=== PATIENT | female | born 1950 | race Caucasian/White ===

== ENCOUNTER → 2016-10-29 | Day surgery (SDC) | payer MEDICARE ==
[~2016-10-29] VITALS: Ht 161.3 cm; Wt 69.6 kg
[~2016-10-29] MED LIST: *HYDROmorphone PF 1 MG VIAL PERIprocedural Use ONLY ONE; ACETAMINOPHEN 1000 MG/100 ML VIAL IV ONE; ACETAMINOPHEN/HYDROcodone 325 MG/5 MG TAB PO PRN; ALPR.5 PO; AMLO10 PO; ASPI-147 PO; BELLADONNA ALKALOIDS/OPIUM 60 MG SUPP ONE; BELLADONNA ALKALOIDS/OPIUM 60 MG SUPP RECTAL ONE; COZA100T PO; DO NOT ADM ANY ANTICOAGULANT DRUGS XX PRN; FAMOTIDINE 20 MG/2 ML VIAL ONE; FOSA70TA PO; HYDROmorphone HCL PF 1 MG/ML VIAL IV PRN; INSULIN HUMAN REGULAR 1,000 UNITS/10 ML VIAL SQ PRN; LACTATED RINGER'S 1000 ML INJ 1,000 ML IV ONE; LACTATED RINGER'S 1000 ML IV SCH; LEVO125T4 PO; LOVA20TA PO; METO50TA11 PO; METOPROLOL TARTRATE 25 MG TAB PO PRN; MIDAZOLAM HCL 2 MG/2 ML VIAL ONE; MORPHINE SULFATE 4 MG/ML INJ IV PRN; NEOSTIGMINE 3 MG/3 ML SYR IV ONE; ONDANSETRON HCL 4 MG/2 ML VIAL IV PUSH ONE; ONDANSETRON HCL 4 MG/2 ML VIAL IV PUSH PRN; OXYB5TAB10 PO; PERC10TA27 PO; PHEN0.4T PO; PROPOFOL 200 MG/20 ML AMP IV ONE; REST15CA PO; SODIUM CHLORID 0.9% 500 ML IV SCH; SUGAMMADEX SODIUM 200 MG/2 ML VIAL IV PUSH ONE; TICEINJ I-VESICULR; TOVI4TAB PO; VESI5TAB PO; ZANA4CAP PO; ceFAZolin 1,000 MG/NS 100 ML IV SCH; ePHEDrine/NS 50 MG/5 ML SYR IV ONE; fentaNYL CITRATE 250 MCG/5 ML AMP ONE
[2016-10-29 08:22] LABS: AUTOMATED NEUTROPHIL # 5.8 TH/MM3 (1.8-7.7); BASOPHIL # 0.1 TH/MM3 (0-0.2); BASOPHIL % 0.5 % (0.0-2.0); EOSINOPHIL # 0.1 TH/MM3 (0-0.4); EOSINOPHIL % 0.9 % (0.0-4.0); HEMATOCRIT 47.8 % (35.0-46.0); HEMO FLAGS DIFF FINAL; LYMPH % 31.9 % (9.0-44.0); LYMPHOCYTE # 3.1 TH/MM3 (1.0-4.8); MEAN CORPUSCULAR HEMOGLOBIN 30.8 PG (27.0-34.0); MEAN CORPUSCULAR HGB CONC 34.2 % (32.0-36.0); NEUT % 59.7 % (16.0-70.0); PLATELET COUNT 235 TH/MM3 (150-450); RED BLOOD COUNT 5.32 MIL/MM3 (4.00-5.30); RED CELL DISTRIBUTION WIDTH 13.7 % (11.6-17.2); WHITE BLOOD COUNT 9.7 TH/MM3 (4.0-11.0)
[2016-10-29 08:26] VITALS: BP 123/77; PULSE 53; RESP 20; TEMP 98; O2SAT 95
[2016-10-29 12:49] VITALS: BP 109/73; PULSE 53; RESP 16; TEMP 98.2; O2SAT 97
--- NOTE | 2016-11-03 18:05 | MP ---
cc: YELENA NEELY DATE OF SURGERY: 10/29/2016 PREOPERATIVE DIAGNOSIS History of low grade bladder cancer. POSTOPERATIVE DIAGNOSIS History of low grade bladder cancer. PROCEDURE Cystoscopy, transurethral resection of prior bladder tumor site as well as bladder biopsy. SURGEON Dr. Neely. ANESTHESIA General endotracheal tube. FLUIDS 500 ccs crystalloid. BLOOD LOSS No blood loss. COMPLICATIONS No complications. SPECIMENS Bladder tumor base and right lateral wall bladder tumor. CONDITION She tolerated the procedure well. There were no complications. INDICATION Isabella Merida is a 66-year-old female with history of left renal cell carcinoma, who underwent left partial nephrectomy a few years ago. She was recently admitted after a fall and sustained a hip fracture and while there she had a bladder tumor identified on CT scan. This was approximately 5 cm in size and she underwent TURBT in August of 2016. She is here today the undergo follow up for re-resection of the area and to make sure there is no other bladder tumors identified within the bladder. In the future she will receive BCG therapy. Risks and benefits were discussed. She was willing to proceed. PROCEDURE The patient was brought to the operating room, identified by myself as Isabella Merida. She was placed in dorsal lithotomy position, prepped and draped in usual sterile fashion, received preprocedure antibiotics, general endotracheal tube anesthesia was administered. A 22-[place] cystoscope was inserted in the bladder. Matthews cystoscopy showed the bladder tumor site as well as some erythema of the bladder noted throughout. It was injected throughout the bladder. The prior bladder tumor site was re-resected with the Browning resectoscope loop and then fulgurated with the rollerball. Cold cup biopsies were taken of the prior bladder tumor site as well as the right lateral wall and sent to pathology. These areas were then fulgurated with the rollerball and there is no evidence of bleeding at the completion of the procedure. She tolerated the procedure well and was transferred to recovery in stable condition. The plan for her will be to receive BCG therapy in the office beginning in approximately 6 weeks for a 6-week course and undergo cystoscopy following that. Yelena BURK/TLL /10:34 AM /5:56 PM
== END | disposition home or self-care (01) ==
LOC: HSDC 07:29
PROVIDERS: ATTEND Urology
DX: C67.9 Malignant neoplasm of bladder, unspecified (principal); I10 Essential (primary) hypertension; J44.9 Chronic obstructive pulmonary disease, unspecified; I25.10 Atherosclerotic heart disease of native coronary artery without angina pectoris; Z98.61 Coronary angioplasty status
CPT/HCPCS: 00912; 52234; 85025; 88307; 88341; 88342; J0131; J0690; J1170; J2250; J2405; J2710; J3010; J7120

== ENCOUNTER → 2017-09-01 | Outpatient (CLI) | payer MEDICARE ==
[~2017-09-01] MED LIST changes: -*HYDROmorphone PF 1 MG VIAL PERIprocedural Use ONLY ONE; -ACETAMINOPHEN 1000 MG/100 ML VIAL IV ONE; -ACETAMINOPHEN/HYDROcodone 325 MG/5 MG TAB PO PRN; -BELLADONNA ALKALOIDS/OPIUM 60 MG SUPP ONE; -BELLADONNA ALKALOIDS/OPIUM 60 MG SUPP RECTAL ONE; -DO NOT ADM ANY ANTICOAGULANT DRUGS XX PRN; -FAMOTIDINE 20 MG/2 ML VIAL ONE; -HYDROmorphone HCL PF 1 MG/ML VIAL IV PRN; -INSULIN HUMAN REGULAR 1,000 UNITS/10 ML VIAL SQ PRN; -LACTATED RINGER'S 1000 ML INJ 1,000 ML IV ONE; -LACTATED RINGER'S 1000 ML IV SCH; +METO1TAB9 PO; -METO50TA11 PO; -METOPROLOL TARTRATE 25 MG TAB PO PRN; -MIDAZOLAM HCL 2 MG/2 ML VIAL ONE; -MORPHINE SULFATE 4 MG/ML INJ IV PRN; -NEOSTIGMINE 3 MG/3 ML SYR IV ONE; -ONDANSETRON HCL 4 MG/2 ML VIAL IV PUSH ONE; -ONDANSETRON HCL 4 MG/2 ML VIAL IV PUSH PRN; -OXYB5TAB10 PO; -PHEN0.4T PO; -PROPOFOL 200 MG/20 ML AMP IV ONE; -REST15CA PO; -SODIUM CHLORID 0.9% 500 ML IV SCH; -SUGAMMADEX SODIUM 200 MG/2 ML VIAL IV PUSH ONE; -TICEINJ I-VESICULR; -TOVI4TAB PO; -VESI5TAB PO; -ceFAZolin 1,000 MG/NS 100 ML IV SCH; -ePHEDrine/NS 50 MG/5 ML SYR IV ONE; -fentaNYL CITRATE 250 MCG/5 ML AMP ONE
== END ==
LOC: PLAB 10:49
PROVIDERS: ATTEND Urology
DX: Z85.51 Personal history of malignant neoplasm of bladder (principal)
CPT/HCPCS: 88305

== ENCOUNTER 2018-01-25 13:31 | Emergency (ER) | payer MEDICARE, OTHER ==
[~2018-01-25] VITALS: Ht 161.3 cm; Wt 70.5 kg
[2018-01-25 13:35] VITALS: BP 199/126; PULSE 90; RESP 20; TEMP 98.7; O2SAT 98
[2018-01-25] MEDS ORDERED: SODIUM CHLOR 0.9% 1000 ML INJ 1,000 ML IV SCH (13:50)
--- NOTE | 2018-01-25 13:55 | PD ---
HPI Chief Complaint: Abdominal Pain Time Seen by Provider: 13:40 Travel History International Travel<30 days: No Contact w/Intl Traveler<30days: No Traveled to known affect area: No History of Present Illness HPI This is a 67-year-old female with history of multiple abdominal surgeries including partial nephrectomy, incisional hernia repair, cholecystectomy, appendectomy, hysterectomy. She presents for evaluation of constipation and abdominal pain. She reports a history of chronic constipation secondary to chronic pain medication use. She reports that the past 10 days she has had worsening constipation. She reports that she has not had a bowel movement, has had occasional julian colored rectal discharge when attempting to have a bowel movement. She has since developed left-sided abdominal pain which she describes as crampy and constant. She reports nausea, decreased appetite and one episode of emesis yesterday. She has passed occasional gas. She has tried numerous remedies at home including stool softeners, Dulcolax suppositories, enema, however her symptoms have been worsening and this is what prompted evaluation. She has no history of bowel obstruction. She denies fevers, chills , flank pain, dysuria. Her primary care physician is Dr. Cano. No other complaints. PFSH Past Medical History Asthma: Yes Blood Disorders: No Anxiety: Yes Depression: Yes Cancer: Yes (L RENAL CELL CARCINOMA, BLADDER CA) Cardiac Catheterization: Yes (X 4) Cardiovascular Problems: Yes (STENTS X2, CAD) High Cholesterol: Yes Congestive Heart Failure: Yes COPD: Yes Cerebrovascular Accident: No Coronary Artery Disease: Yes Diabetes: No Endocrine: Yes Gastrointestinal Disorders: Yes Genitourinary: Yes (KIDNEY CANCER, PARTIAL NEPHECTOMY) Hepatitis: No Hiatal Hernia: Yes Hypertension: Yes Immune Disorder: No Implanted Vascular Access Dvce: Yes Kidney Stones: Yes Musculoskeletal: Yes (OSTEOPOROSIS, ARTHRITIS, BACK PROBLEMS, HX OF FX L1,L4,L5 , LEFT HIP FX) Neurologic: Yes (MIGRAINES) Psychiatric: Yes (CLAUSTRAPHOBIA) Reproductive: No Respiratory: Yes (COPD, CHRONIC ASTHMATIC BRONCHITIS) Immunizations Current: No Migraines: Yes Renal Failure: No Thyroid Disease: Yes Ulcer: Yes PNEUMOCCOCAL Vaccine (Year): 2 Menopausal: Yes Past Surgical History Abdominal Surgery: Yes (APPENDECTOMY,RLQ HERNIA, ANG) AICD: No Appendectomy: Yes Body Medical Devices: 2 CARDIAC STENTS; LEFT LEG & HIP HARDWARE, MESH TO ABD Cardiac Surgery: Yes (2 STENTS, ANGIOGRAMS) Cholecystectomy: Yes Coronary Artery Bypass Graft: No Coronary Stent: Yes Ear Surgery: No Endocrine Surgery: No Eye Surgery: No Genitourinary Surgery: Yes (PARTIAL L NEPHPRECTOMY) Gynecologic Surgery: Yes (HYSTERECTOMY) Hysterectomy: Yes Joint Replacement: No Oral Surgery: No Pacemaker: No Thoracic Surgery: No Other Surgery: Yes (HERNIA REPAIR) Social History Alcohol Use: No Tobacco Use: Yes (less than one p0pd) Substance Use: No Allergies-Medications (Allergen,Severity, Reaction): Coded Allergies: niacin (Verified Allergy, Intermediate, RASH, 01/25/18) ciprofloxacin (Verified Adverse Reaction, Severe, Nausea/Vomiting, 01/25/18 ) codeine (Verified Adverse Reaction, Intermediate, NAUSEA, 01/25/18) ketorolac (Verified Adverse Reaction, Intermediate, Nausea/Vomiting, ) Reported Meds & Prescriptions Reported Meds & Active Scripts Active Golytely 236 gm (Polyethylene Glycol/Electrolytes) 4,000 Ml Soln 4,000 Ml PO ONCE Reported Norvasc (Amlodipine Besylate) 5 Mg Tab 5 Mg PO DAILY@1600 Xanax (Alprazolam) 0.5 Mg Tab 0.5 Mg PO Q8H PRN Zanaflex (Tizanidine HCl) 4 Mg Cap 4 Mg PO TID Percocet (Oxycodone-Acetaminophen) 10-325 mg Tab 1 Tab PO Q4H PRN Metoprolol Succinate ER 24 HR (Metoprolol Succinate) 50 Mg Tab 50 Mg PO BID Lovastatin 20 Mg Tab 20 Mg PO DAILY Levothyroxine (Levothyroxine Sodium) 125 Mcg Tab 125 Mcg PO DAILY Fosamax (Alendronate Sodium) 70 Mg Tab 70 Mg PO Q7D Cozaar (Losartan Potassium) 100 Mg Tab 100 Mg PO DAILY Ecotrin Low Strength (Aspirin) 81 Mg Tabdr 81 Mg PO DAILY Review of Systems Except as stated in HPI: all other systems reviewed are Neg Physical Exam Narrative GENERAL: Pleasant well-developed well-nourished female no acute distress SKIN: Warm and dry. HEAD: Atraumatic. Normocephalic. EYES: Pupils equal and round. No scleral icterus. No injection or drainage. ENT: No nasal bleeding or discharge. Mucous membranes pink and moist. NECK: Trachea midline. No JVD. CARDIOVASCULAR: Regular rate and rhythm. No murmur appreciated. RESPIRATORY: No accessory muscle use. Clear to auscultation. Breath sounds equal bilaterally. GASTROINTESTINAL: Abdomen soft, tenderness to palpation in the left upper and lower quadrants without guarding. There is no rebound tenderness. Several abdominal wall surgical scars noted. No CVA tenderness. Decreased bowel sounds in all 4 quadrants. MUSCULOSKELETAL: No obvious deformities. No clubbing. No cyanosis. No edema. NEUROLOGICAL: Awake and alert. No obvious cranial nerve deficits. Motor grossly within normal limits. Normal speech. Data Data Last Documented VS Vital Signs Date Time Temp Pulse Resp B/P (MAP) Pulse Ox O2 Delivery O2 Flow Rate FiO2 01/25/18 15:06 98.2 68 16 163/94 (117) 98 Room Air Orders Orders Complete Blood Count With Diff (01/25/18 13:50) Comprehensive Metabolic Panel (01/25/18 13:50) Lipase (01/25/18 13:50) Prothrombin Time / Inr (Pt) (01/25/18 13:50) Act Partial Throm Time (Ptt) (01/25/18 13:50) Urinalysis - C+S If Indicated (01/25/18 13:50) Ct Abd/Pel W Iv Contrast(Rout) (01/25/18 13:50) Iv Access Insert/Monitor (01/25/18 13:50) Ecg Monitoring (01/25/18 13:50) Ondansetron Inj (Zofran Inj) (01/25/18 14:00) Sodium Chlor 0.9% 1000 Ml Inj (Ns 1000 M (01/25/18 13:50) Oral Contrast - Adult (01/25/18 13:59) Diatrizoate Liq ( Gastroview Liq) (01/25/18 14:11) Iohexol 350 Inj (Omnipaque 350 Inj) (01/25/18 15:44) Ed Discharge Order (01/25/18 17:04) Labs Laboratory Tests Test 01/25/18 14:00 01/25/18 15:00 White Blood Count 10.5 TH/MM3 Red Blood Count 5.22 MIL/MM3 Hemoglobin 16.5 GM/DL Hematocrit 47.3 % Mean Corpuscular Volume 90.8 FL Mean Corpuscular Hemoglobin 31.6 PG Mean Corpuscular Hemoglobin Concent 34.9 % Red Cell Distribution Width 13.1 % Platelet Count 292 TH/MM3 Mean Platelet Volume 8.3 FL Neutrophils (%) (Auto) 62.9 % Lymphocytes (%) (Auto) 30.6 % Monocytes (%) (Auto) 5.7 % Eosinophils (%) (Auto) 0.4 % Basophils (%) (Auto) 0.4 % Neutrophils # (Auto) 6.6 TH/MM3 Lymphocytes # (Auto) 3.2 TH/MM3 Monocytes # (Auto) 0.6 TH/MM3 Eosinophils # (Auto) 0.0 TH/MM3 Basophils # (Auto) 0.0 TH/MM3 CBC Comment DIFF FINAL Differential Comment Prothrombin Time 10.4 SEC Prothromb Time International Ratio 1.0 RATIO Activated Partial Thromboplast Time 25.5 SEC Blood Urea Nitrogen 14 MG/DL Creatinine 0.67 MG/DL Random Glucose 102 MG/DL Total Protein 8.3 GM/DL Albumin 4.1 GM/DL Calcium Level 10.0 MG/DL Alkaline Phosphatase 74 U/L Aspartate Amino Transf (AST/SGOT) 15 U/L Alanine Aminotransferase (ALT/SGPT) 20 U/L Total Bilirubin 0.3 MG/DL Sodium Level 140 MEQ/L Potassium Level 4.3 MEQ/L Chloride Level 106 MEQ/L Carbon Dioxide Level 24.6 MEQ/L Anion Gap 9 MEQ/L Estimat Glomerular Filtration Rate 88 ML/MIN Lipase 90 U/L Urine Color COLORLESS Urine Turbidity CLEAR Urine pH 5.5 Urine Specific [place] 1.002 Urine Protein NEG mg/dL Urine Glucose (UA) NEG mg/dL Urine Ketones NEG mg/dL Urine Occult Blood NEG Urine Nitrite NEG Urine Bilirubin NEG Urine Urobilinogen LESS THAN 2.0 MG/DL Urine Leukocyte Esterase NEG Urine WBC LESS THAN 1 /hpf Urine Squamous Epithelial Cells <1 /hpf Microscopic Urinalysis Comment CULT NOT INDICATED MDM Medical Decision Making Medical Screen Exam Complete: Yes Emergency Medical Condition: Yes Medical Record Reviewed: Yes Differential Diagnosis Opiate-induced constipation, small bowel obstruction, large bowel obstruction, volvulus, colitis, diverticulitis Narrative Course Lab work, urinalysis, CT abdomen and pelvis have been ordered. The patient will be given IV fluids and Zofran. CT abdomen pelvis reveals CONCLUSION: 1. Large amount stool throughout the colon possibly representing some degree of constipation. 2. Diverticular disease of the sigmoid without diverticulitis. 3. Patient is status post cholecystectomy. There may be punctate calcification within the common hepatic duct above the level of the pancreas. No findings of biliary obstruction, however. 4. Old compression fractures at L1 and L4 Rectal examination was performed revealing no evidence of fecal impaction. At this point time the plan will be to discharge the patient with a prescription for GoLYTELY. She understands to return for any acutely new or worsening symptoms. Diagnosis Primary Impression: Constipation Additional Instructions: Medication as prescribed. Stay well hydrated. Use pain medication sparingly. Follow-up with primary care physician and return for any acutely new or worsening symptoms. Med/Other Pt SpecificInfo: Prescription(s) given Scripts Peg-Electrolytes (Golytely 236 gm) 4,000 Ml Soln 4000 ML PO ONCE for Bowel Cleanser, #1 CONTAINER 0 Refills Prov: Guicho Donald MD 01/25/18 Disposition: 01 DISCHARGE HOME Condition: Stable Fred Mandujano Jan 25, 2018 13:55
[2018-01-25] MEDS ORDERED: ONDANSETRON HCL 4 MG/2 ML VIAL IVP ONE (14:00)
[2018-01-25] MEDS ORDERED: DIATRIZOATE MEGLUM/DIATRIZOATE SOD 9 ML CUP ONE (14:11)
[2018-01-25 14:13] LABS: AUTOMATED NEUTROPHIL # 6.6 TH/MM3 (1.8-7.7); BASOPHIL % 0.4 % (0.0-2.0); EOSINOPHIL % 0.4 % (0.0-4.0); HEMATOCRIT 47.3 % (35.0-46.0); HEMOGLOBIN 16.5 GM/DL (11.6-15.3); LYMPH % 30.6 % (9.0-44.0); LYMPHOCYTE # 3.2 TH/MM3 (1.0-4.8); MEAN CELL VOLUME 90.8 FL (80.0-100.0); MEAN CORPUSCULAR HEMOGLOBIN 31.6 PG (27.0-34.0); MEAN CORPUSCULAR HGB CONC 34.9 % (32.0-36.0); MEAN PLATELET VOLUME 8.3 FL (7.0-11.0); MONO % 5.7 % (0.0-8.0); MONOCYTE # 0.6 TH/MM3 (0-0.9); NEUT % 62.9 % (16.0-70.0); PLATELET COUNT 292 TH/MM3 (150-450); RED BLOOD COUNT 5.22 MIL/MM3 (4.00-5.30); RED CELL DISTRIBUTION WIDTH 13.1 % (11.6-17.2); WHITE BLOOD COUNT 10.5 TH/MM3 (4.0-11.0)
[2018-01-25 14:32] LABS: ALBUMIN 4.1 GM/DL (3.4-5.0); ALT (GPT) 20 U/L (10-53); AST (GOT) 15 U/L (15-37); BICARBONATE 24.6 MEQ/L (21.0-32.0); BLOOD UREA NITROGEN 14 MG/DL (7-18); CHLORIDE 106 MEQ/L (98-107); CREATININE 0.67 MG/DL (0.50-1.00); GLOMERULAR FILTRATION RATE 88 ML/MIN (>89); GLUCOSE,RANDOM 102 MG/DL (74-106); SODIUM (NA) 140 MEQ/L (136-145)
[2018-01-25 14:34] LABS: ALKALINE PHOSPHATASE 74 U/L (45-117); TOTAL BILIRUBIN ADULT 0.3 MG/DL (0.2-1.0); TOTAL PROTEIN 8.3 GM/DL (6.4-8.2)
[2018-01-25 14:39] LABS: PROTHROMBIN TIME - PATIENT 10.4 SEC (9.8-11.6)
[2018-01-25] MEDS ORDERED: AMLO5 PO (14:47)
[2018-01-25 15:06] VITALS: BP 163/94; PULSE 68; RESP 16; TEMP 98.2; O2SAT 98
[2018-01-25] MEDS ORDERED: IOHEXOL 350 MG/ML 10 ML VIAL (for RAD DIAG) IVCONTRAST ONE (15:44)
[2018-01-25 15:50] LABS: BILIRUBIN, URINE NEG (NEG); BLOOD, URINE NEG (NEG); GLUCOSE,URINE NEG (NEG); KETONE, URINE NEG (NEG); NITRITE,URINE NEG (NEG); PH, URINE 5.5 (5.0-8.5); SQUAMOUS EPITHELIAL CELL URINE <1 /hpf (0-5); URINE COLOR COLORLESS (YELLW/STRAW); URINE LEUKOCYTE ESTERASE NEG (NEG)
--- NOTE | 2018-01-25 16:37 | RADRPT ---
EXAM DATE/TIME: 01/25/2018 15:32 [facility] COMPARISON: No previous studies available for comparison. INDICATIONS : Abdominal pain IV CONTRAST: 95 cc Omnipaque 350 (iohexol) IV ORAL CONTRAST: No oral contrast ingested. RADIATION DOSE: 6.86 CTDIvol (mGy) MEDICAL HISTORY : Renal cell carcinoma. Hernia, hiatal. Hypertension. SURGICAL HISTORY : Appendectomy. Cholecystectomy.Hysterectomy. ENCOUNTER: Initial ACUITY: 1 week PAIN SCALE: 6/10 LOCATION: diffuse abdomen TECHNIQUE: Volumetric scanning of the abdomen and pelvis was performed. Using automated exposure control and ad justment of the mA and/or kV according to patient size, radiation dose was kept as low as reasonably achievable to obtain optimal diagnostic quality images. DICOM format image data is available electro nically for review and comparison. FINDINGS: LOWER LUNGS: The visualized lower lungs are clear. LIVER: Homogeneous density without lesion. There is no dilation of the biliary tree. Patient is status post cholecystectomy. There may be a punctate stone within the CBD above the pancreatic head. SPLEEN: Normal size without lesion. PANCREAS: Within normal limits. KIDNEYS: Normal in size and shape. There is no mass, stone or hydronephrosis. Multiple calcifications in the hilum of the kidney laterally ADRENAL GLANDS: Within normal limits. VASCULAR: There is no aortic aneurysm. BOWEL/MESENTERY: Large amount of stool throughout the colon characteristic of some degree of constipation. Some divert icular disease in the sigmoid without diverticulitis. ABDOMINAL WALL: Within normal limits. RETROPERITONEUM: There is no lymphadenopathy. BLADDER: No wall thickening or mass. REPRODUCTIVE: Within normal limits. INGUINAL: There is no lymphadenopathy or hernia. MUSCULOSKELETAL: Chronic appearing compression fractures through L1 and L4. Left medullary betito and compression screw. CONCLUSION: 1. Large amount stool throughout the colon possibly representing some degree of constipation. 2. Diverticular disease of the sigmoid without diverticulitis. 3. Patient is status post cholecystectomy. There may be punctate calcification within the common hepa tic duct above the level of the pancreas. No findings of biliary obstruction, however. 4. Old compression fractures at L1 and L4 Sundeep Pruitt MD on January 25, 2018 at 16:23 Board Certified Radiologist. This report was verified electronically.
[2018-01-25] MEDS ORDERED: COLY4000S PO (17:05)
[2018-01-25 17:17] VITALS: BP 125/78; TEMP 97.9
--- NOTE | 2018-01-25 17:35 | PD ---
Physical Exam Date Seen by Provider: Jan 25, 2018 Time Seen by Provider: 15:30 Narrative I, Dr. Donald, have reviewed the advance practice practitioner's documentation and am in agreement, met with the patient face to face, made the diagnosis, and the medical decision making was done by me. *My assessment and Findings: Patient seen and evaluated with PA, please see PA notes for further details. She is here with constipation abdominal pain for several days, had one episode of vomiting yesterday. On exam, she is tender to palpation in left lower quadrant. Workup was fairly unremarkable. CAT scan did not show any signs of acute intra-abdominal processes, shows constipation. Patient will be released with treatment for constipation and follow-up to primary care physician. Laboratory Tests Test 01/25/18 14:00 01/25/18 15:00 Hemoglobin 16.5 GM/DL (11.6-15.3) Hematocrit 47.3 % (35.0-46.0) Total Protein 8.3 GM/DL (6.4-8.2) Estimat Glomerular Filtration Rate 88 ML/MIN (>89) Last 24 hours Impressions Abdomen/Pelvis CT 01/25/18 1350 Signed Impressions: Service Date/Time: Thursday, January 25, 2018 15:32 - CONCLUSION: 1. Large amount stool throughout the colon possibly representing some degree of constipation. 2. Diverticular disease of the sigmoid without diverticulitis. 3. Patient is status post cholecystectomy. There may be punctate calcification within the common hepatic duct above the level of the pancreas. No findings of biliary obstruction, however. 4. Old compression fractures at L1 and L4 Sundeep Pruitt MD Data Data Last Documented VS Vital Signs Date Time Temp Pulse Resp B/P (MAP) Pulse Ox O2 Delivery O2 Flow Rate FiO2 01/25/18 17:17 97.9 78 16 125/78 (94) 99 01/25/18 15:06 Room Air Orders Orders Complete Blood Count With Diff (01/25/18 13:50) Comprehensive Metabolic Panel (01/25/18 13:50) Lipase (01/25/18 13:50) Prothrombin Time / Inr (Pt) (01/25/18 13:50) Act Partial Throm Time (Ptt) (01/25/18 13:50) Urinalysis - C+S If Indicated (01/25/18 13:50) Ct Abd/Pel W Iv Contrast(Rout) (01/25/18 13:50) Iv Access Insert/Monitor (01/25/18 13:50) Ecg Monitoring (01/25/18 13:50) Ondansetron Inj (Zofran Inj) (01/25/18 14:00) Sodium Chlor 0.9% 1000 Ml Inj (Ns 1000 M (01/25/18 13:50) Oral Contrast - Adult (01/25/18 13:59) Diatrizoate Liq ( Gastrojohnnie Liq) (01/25/18 14:11) Iohexol 350 Inj (Omnipaque 350 Inj) (01/25/18 15:44) Ed Discharge Order (01/25/18 17:04) Labs Laboratory Tests Test 01/25/18 14:00 01/25/18 15:00 White Blood Count 10.5 TH/MM3 Red Blood Count 5.22 MIL/MM3 Hemoglobin 16.5 GM/DL Hematocrit 47.3 % Mean Corpuscular Volume 90.8 FL Mean Corpuscular Hemoglobin 31.6 PG Mean Corpuscular Hemoglobin Concent 34.9 % Red Cell Distribution Width 13.1 % Platelet Count 292 TH/MM3 Mean Platelet Volume 8.3 FL Neutrophils (%) (Auto) 62.9 % Lymphocytes (%) (Auto) 30.6 % Monocytes (%) (Auto) 5.7 % Eosinophils (%) (Auto) 0.4 % Basophils (%) (Auto) 0.4 % Neutrophils # (Auto) 6.6 TH/MM3 Lymphocytes # (Auto) 3.2 TH/MM3 Monocytes # (Auto) 0.6 TH/MM3 Eosinophils # (Auto) 0.0 TH/MM3 Basophils # (Auto) 0.0 TH/MM3 CBC Comment DIFF FINAL Differential Comment Prothrombin Time 10.4 SEC Prothromb Time International Ratio 1.0 RATIO Activated Partial Thromboplast Time 25.5 SEC Blood Urea Nitrogen 14 MG/DL Creatinine 0.67 MG/DL Random Glucose 102 MG/DL Total Protein 8.3 GM/DL Albumin 4.1 GM/DL Calcium Level 10.0 MG/DL Alkaline Phosphatase 74 U/L Aspartate Amino Transf (AST/SGOT) 15 U/L Alanine Aminotransferase (ALT/SGPT) 20 U/L Total Bilirubin 0.3 MG/DL Sodium Level 140 MEQ/L Potassium Level 4.3 MEQ/L Chloride Level 106 MEQ/L Carbon Dioxide Level 24.6 MEQ/L Anion Gap 9 MEQ/L Estimat Glomerular Filtration Rate 88 ML/MIN Lipase 90 U/L Urine Color COLORLESS Urine Turbidity CLEAR Urine pH 5.5 Urine Specific [place] 1.002 Urine Protein NEG mg/dL Urine Glucose (UA) NEG mg/dL Urine Ketones NEG mg/dL Urine Occult Blood NEG Urine Nitrite NEG Urine Bilirubin NEG Urine Urobilinogen LESS THAN 2.0 MG/DL Urine Leukocyte Esterase NEG Urine WBC LESS THAN 1 /hpf Urine Squamous Epithelial Cells <1 /hpf Microscopic Urinalysis Comment CULT NOT INDICATED MDM Medical Record Reviewed: Yes Supervised Visit with OSMAN: Yes Diagnosis Primary Impression: Constipation Patient Instructions: General Instructions, Constipation (ED), High Fiber Diet (ED) Departure Forms: Tests/Procedures Additional Instruction: Medication as prescribed. Stay well hydrated. Use pain medication sparingly. Follow-up with primary care physician and return for any acutely new or worsening symptoms. Scripts Peg-Electrolytes (Golytely 236 gm) 4,000 Ml Soln 4000 ML PO ONCE for Bowel Cleanser, #1 CONTAINER 0 Refills Prov: Guicho Donald MD 01/25/18 Disposition: DISCHARGE HOME Condition: Stable Guicho Donald MD Jan 25, 2018 17:35
== END 2018-01-25 17:17 | disposition home or self-care (01) ==
LOC: NEPE 13:31
DX: K59.09 Other constipation (principal); E78.00 Pure hypercholesterolemia, unspecified; I11.0 Hypertensive heart disease with heart failure; I50.9 Heart failure, unspecified; F17.200 Nicotine dependence, unspecified, uncomplicated; Z85.51 Personal history of malignant neoplasm of bladder; Z85.528 Personal history of other malignant neoplasm of kidney
CPT/HCPCS: 74177; 80053; 81001; 83690; 85025; 85610; 85730; 96361; 96374; 99284; J2405; J7030; Q9963; Q9967

== ENCOUNTER → 2018-03-03 | Outpatient (CLI) | payer OTHER ==
[~2018-03-03] MED LIST changes: -AMLO10 PO; +AMLO5 PO; +COLY4000S PO
--- NOTE | 2018-03-04 09:18 | RSPPFT ---
DATE OF PROCEDURE: 03/03/18 COMMENTS: Spirometry shows FVC of 2.3 at 83% of predicted, FEV1 of 1.6 at 71%, FEV1/FVC ratio is decreased. Flow is decreased at FEF 25, FEF 50, FEF 75 and FEF 25-75. There is a mild response after bronchodilator treatment. Lung volumes show residual volume is normal. TLC is normal. Diffusion capacity is normal. Flow volume loop indicates an obstructive pattern. IMPRESSION: 1. Mild obstructive lung disease. 2. Mild response after bronchodilator treatment. 3. Normal lung volumes. 4. Normal diffusion capacity.
== END ==
LOC: PHRSP 07:31
PROVIDERS: ATTEND Specialist
DX: J44.9 Chronic obstructive pulmonary disease, unspecified (principal)
CPT/HCPCS: 94060; 94726; 94729